=== PATIENT | male | born 1970 | race Caucasian/White ===

== ENCOUNTER 2022-06-07 18:16 | Emergency (ER) | payer SELFPAY ==
[~2022-06-07] VITALS: Ht 170.2 cm; Wt 72.7 kg
[2022-06-07 18:17] VITALS: BP 130/72
[2022-06-07] MEDS ORDERED: FLUORESCEIN SODIUM 1 MG STRIP OU ONE (19:15)
[2022-06-07] MEDS ORDERED: PROPARACAINE HCL 0.5% 15 ML OPHTHALMIC SOLUTION OU ONE (19:15)
[2022-06-07] MEDS ORDERED: ERYTHROMYCIN 0.5% 3.5 GM TUBE OPHTHALMIC OINTMENT OD ONE (20:00)
[2022-06-07] MEDS ORDERED: HYDR-4723 PO (20:47)
== END 2022-06-07 20:18 | disposition home or self-care (01) ==
LOC: EMS 18:16
DX: S05.01XA Injury of conjunctiva and corneal abrasion without foreign body, right eye, initial encounter (principal); F17.210 Nicotine dependence, cigarettes, uncomplicated; X58.XXXA Exposure to other specified factors, initial encounter; Y93.89 Activity, other specified; Y92.89 Other specified places as the place of occurrence of the external cause; Y99.8 Other external cause status
CPT/HCPCS: 99283